=== PATIENT | female | born 1975 | race Caucasian/White ===

== ENCOUNTER 2016-11-26 12:00 | Emergency (ER) | payer SELFPAY ==
[~2016-11-26] VITALS: Ht 152.4 cm; Wt 45.4 kg
[~2016-11-26 12:00] MED LIST: TRAZODONE 50MG50 MG PO
--- NOTE | 2016-11-26 12:22 | Emergency Room Report ---
History of Present Illness Time Seen by 1204 Presenting Problem in Triage Pt arrived:Walked Presenting Problem:C/O PAIN IN L FOOT X3 WEEKS. PT DENIES ACCIDENT OR INJURY. 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 N Clinical Suspician of Infection? N Mental Status: 1 - Regular (Normal Baseline) Sepsis Risk:Low Sepsis Risk Have you (or family members/close friends) recently traveled outside the [place]? N If Yes, where/when: Have you had exposure to infectious disease within the past month? N TB? Other? Specify: Patient complains of pain in her ankle are for three weeks states that pain is worse when anything touches her skin. States was seen 3 weeks ago at [facility] and was dx with sciatica, give Naproxin, Flexaril and Vicodin. Denies any injury states that she just woke up and it was hurting. Pain is mostly on top of skin when skin area is touched. Exam Limitations no limitations, patient did not want foot/ankle area touched, however finally agreed to allow exam warm to touch ALLERGIES Coded Allergies: erythromycin base (11/26/16) (AKASH CALDERON, COLIN Arroyo) Presenting Problem in Triage Pt arrived:Walked Presenting Problem:C/O PAIN IN L FOOT X3 WEEKS. PT DENIES ACCIDENT OR INJURY. 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 N Clinical Suspician of Infection? N Mental Status: 1 - Regular (Normal Baseline) Sepsis Risk:Low Sepsis Risk Have you (or family members/close friends) recently traveled outside the [place]? N If Yes, where/when: Have you had exposure to infectious disease within the past month? N TB? Other? 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 No Angina: No MS: No Hypertension? No Hyperlipidemia? No CHF? No DVT? No PE? No COPD? No Asthma? No Anemia? No GERD? No Gastric ulcers? No GI Bleed? No Hernia? No Thyroid Problems? No Hypothyroidism? No CVA? No Seizures? No Diabetes? No Renal Insuffiency? No End Stage Renal Disease? No UTI? No Stones? No GB Disease: Yes Nephritic Syndrome? No Asplenia? No Hepatitis? No Sickle Cell Disease? No Arthritis? No Migraines? No Cataracts? No Glaucoma? No MRSA? No HIV? No TB? No Anxiety? Yes Depression? Yes Cancer? No More? 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 Respiratory denies no symptoms reported Cardiovascular denies no symptoms reported Gastrointestinal denies no symptoms reported Musculoskeletal denies see HPI, denies other (pain R ankle area) Skin denies no symptoms reported, denies see HPI (COLIN BUSTOS APRN) All Other Systems Reviewed and Negative (Aaliyah Bocanegra MD) Physical Exam General Appearance normal appearance, no apparent distress Eye Exam - bilateral eye normal exam, bilateral eye PERRL Ear, Nose, Throat normal ENT inspection Neck normal inspection Respiratory Status Yes: trachea midline, chest symmetrical. No: respiratory distress. Lung Sounds bilateral: normal breath sounds, lungs clear. Cardiovascular normal exam Peripheral Pulses Pulses normal Yes Comment Pedal pulses checked, of equal quality easily palpated Gastrointestinal normal bowel sounds, normal exam, non tender Extremities normal inspection, normal capillary refill, no calf tenderness, no pedal edema, Patient complains of pain in her left foot/ankle area states that pain is continous occuring for over 3 weeks states that skin feels sore and hurts when anything even a bedsheet touches the area. Denies any injury Strength 4 Lower Ext (L), 5 Upper Ext (L), 5 Upper Ext (R), 5 Lower Ext (L), 5 Lower Ext (R) (pain in extremity when touched) Nurse present during exam? Yes Neurologic alert, normal exam, no motor/sensory deficits Glascow Coma Scale Glascow Coma Scale Response Value EYE response: 4 Spontaneously 4 MOTOR response: 6 OBEYS 6 VERBAL response: 5 Oriented & Converses 5 Total 15 Reflexes Reflexes normal Yes Skin intact, normal color, warm/dry (AKASH CALDERON, COLIN Arroyo) Vital Signs Vital Signs Date Time Temp Pulse Resp B/P Pulse O2 O2 Flow FiO2 Ox Delivery Rate 11/26 1655 97.8 85 18 103/44 100 11/26 1622 85 18 103/44 100 11/26 1620 18 11/26 1433 79 18 159/74 99 11/26 1204 97.6 100 18 137/87 99 Extremities Patient has tenderness over tendons, dorsum of left foot, c/w tendinitis, but foot is somewhat cool to touch. Has used ice recently. No gross discoloration noted. No asymmetry, crepitus, deformity, or stepoffs noted, no pain over Achilles tendon. Brisk CR, fully sensate, DP and PT full. Skin intact (no streaks or abscess) (Daljit YOO, Aaliyah Oliveira) Medical Decision Making LABS/Meds/Orders Pt receiving controlled substance in ED? No (Track keller noted by RN) Tiago was queried for this patient? No Results/Orders Laboratory Tests 11/26/16 1230: Sodium 139, Potassium 3.7, Chloride 100, Carbon Dioxide 30, BUN 9, Creatinine 0.7, Estimated Creat Clear 77, Estimated GFR (MDRD) 93, Glucose 74, Uric Acid 3.3, Calcium 9.2, WBC 9.6, RBC 4.84, Hgb 14.3, Hct 42.2, MCV 87.2, RDW 14.7, Plt Count 394, Gran % 63.6, Gran # 6.1, Lymphocytes % 32.0, Monocytes % 4.4, Lymphocytes # 3.1, Monocytes # 0.4, PUBS MCHC 33.9, MCH 29.5 Orders Procedure Date/time Status DIET-NOTHING BY MOUTH 11/26 D Active STABILIZE JOINT 11/26 165 Active SERUM , QUAL 11/26 1452 Complete IV SALINE LOCK 11/[address] SCAN REQ 11/26 1448 Complete URIC ACID 11/26 1232 Complete CBC WITH AUTO DIFF 11/26 1232 Complete BASIC METABOLIC PROFILE 11/26 1232 Complete XRAY/CT/US XRAY/CT/US CT interpretation by reviewed by me (report reviewed) Time results known: 1644 CT Results normal/NAD (good flow, no abnormalities) Ultrasound lower extremity US results normal (good venous flow per tech) Progress ED Progress Notes 1 Date 11/26/16 Time [address] angiogram results. Foot is not discolored, but is slightly cool, hence indication for arterial evaluation to assess circulation. ED Progress Notes 2 Date 11/26/16 Time 1648 Comment No discoloration of foot noted at time of discharge. (Aaliyah Bocanegra MD) Departure Departure Condition STABLE Prescriptions Current Visit Scripts NAPROXEN (NAPROXEN 500MG TAB) 500 MG PO BIDP PRN pain #20 TAB ED Critical Care Critical Care No (COLIN BUSTOS APRN) Departure Time of Disposition 1644 Disposition DC Home or Self Care(routine) Clinical Impression Primary Impression: Tendinitis of left foot Ruled Out Impressions: DVT (deep venous thrombosis), Peripheral artery vasospasm Referrals Harvey Lorenz MD Patient Instructions Tendonitis (Alternative Therapy) Additional Instructions Crutches for support, Rx Naproxen, See Dr. Lorenz or an orthopedic surgeon or shed boss of choice where you are moving to in [place]. Recommend follow up in 2-4 days. Discharge Counseling Counseled pt/family regarding diagnosis, test results, medications/RX, home care, follow up needs ED Critical Care Critical Care No (Aaliyah Bocanegra MD) at 1649 at 1128 Time 164 Comment No discoloration of foot noted at time of discharge. (Aaliyah Bocanegra MD) Departure Departure Condition STABLE Prescriptions Current Visit Scripts No Known Home Medications (COLIN BUSTOS APRN) Departure Time of Disposition 1644 Disposition DC Home or Self Care(routine) Clinical Impression Primary Impression: Tendinitis of left foot Ruled Out Impressions: DVT (deep venous thrombosis), Peripheral artery vasospasm Referrals Harvey Lorenz MD Patient Instructions Tendonitis (Alternative Therapy) Additional Instructions Crutches for support, Rx Naproxen, See Dr. Pettey or an orthopedic surgeon or shed boss of choice where you are moving to in [place]. Recommend follow up in 2-4 days. Discharge Counseling Counseled pt/family regarding diagnosis, test results, medications/RX, home care, follow up needs ED Critical Care Critical Care No (Daljit YOO, Aaliyah Oliveira) at [phone]
--- NOTE | 2016-11-26 12:22 | Emergency Room Report ---
History of Present Illness Time Seen by 1204 Presenting Problem in Triage Pt arrived:Walked Presenting Problem:C/O PAIN IN L FOOT X3 WEEKS. PT DENIES ACCIDENT OR INJURY. 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 N Clinical Suspician of Infection? N Mental Status: 1 - Regular (Normal Baseline) Sepsis Risk:Low Sepsis Risk Have you (or family members/close friends) recently traveled outside the [place]? N If Yes, where/when: Have you had exposure to infectious disease within the past month? N TB? Other? Specify: Patient complains of pain in her ankle are for three weeks states that pain is worse when anything touches her skin. States was seen 3 weeks ago at [facility] and was dx with sciatica, give Naproxin, Flexaril and Vicodin. Denies any injury states that she just woke up and it was hurting. Pain is mostly on top of skin when skin area is touched. Exam Limitations no limitations, patient did not want foot/ankle area touched, however finally agreed to allow exam warm to touch ALLERGIES Coded Allergies: erythromycin base (11/26/16) (AKASH CALDERON, COLIN Arroyo) Presenting Problem in Triage Pt arrived:Walked Presenting Problem:C/O PAIN IN L FOOT X3 WEEKS. PT DENIES ACCIDENT OR INJURY. 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 N Clinical Suspician of Infection? N Mental Status: 1 - Regular (Normal Baseline) Sepsis Risk:Low Sepsis Risk Have you (or family members/close friends) recently traveled outside the [place]? N If Yes, where/when: Have you had exposure to infectious disease within the past month? N TB? Other? 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 No Angina: No [place]: No Hypertension? No Hyperlipidemia? No CHF? No DVT? No PE? No COPD? No Asthma? No Anemia? No GERD? No Gastric ulcers? No GI Bleed? No Hernia? No Thyroid Problems? No Hypothyroidism? No CVA? No Seizures? No Diabetes? No Renal Insuffiency? No End Stage Renal Disease? No UTI? No Stones? No GB Disease: Yes Nephritic Syndrome? No Asplenia? No Hepatitis? No Sickle Cell Disease? No Arthritis? No Migraines? No Cataracts? No Glaucoma? No MRSA? No HIV? No TB? No Anxiety? Yes Depression? Yes Cancer? No More? 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 Respiratory denies no symptoms reported Cardiovascular denies no symptoms reported Gastrointestinal denies no symptoms reported Musculoskeletal denies see HPI, denies other (pain R ankle area) Skin denies no symptoms reported, denies see HPI (COLIN BUSTOS APRN) All Other Systems Reviewed and Negative (Aaliyah Bocanegra MD) Physical Exam General Appearance normal appearance, no apparent distress Eye Exam - bilateral eye normal exam, bilateral eye PERRL Ear, Nose, Throat normal ENT inspection Neck normal inspection Respiratory Status Yes: trachea midline, chest symmetrical. No: respiratory distress. Lung Sounds bilateral: normal breath sounds, lungs clear. Cardiovascular normal exam Peripheral Pulses Pulses normal Yes Comment Pedal pulses checked, of equal quality easily palpated Gastrointestinal normal bowel sounds, normal exam, non tender Extremities normal inspection, normal capillary refill, no calf tenderness, no pedal edema, Patient complains of pain in her left foot/ankle area states that pain is continous occuring for over 3 weeks states that skin feels sore and hurts when anything even a bedsheet touches the area. Denies any injury Strength 4 Lower Ext (L), 5 Upper Ext (L), 5 Upper Ext (R), 5 Lower Ext (L), 5 Lower Ext (R) (pain in extremity when touched) Nurse present during exam? Yes Neurologic alert, normal exam, no motor/sensory deficits Glascow Coma Scale Glascow Coma Scale Response Value EYE response: 4 Spontaneously 4 MOTOR response: 6 OBEYS 6 VERBAL response: 5 Oriented & Converses 5 Total 15 Reflexes Reflexes normal Yes Skin intact, normal color, warm/dry (AKASH CALDERON, COLIN Arroyo) Vital Signs Vital Signs Date Time Temp Pulse Resp B/P Pulse O2 O2 Flow FiO2 Ox Delivery Rate 11/26 1655 97.8 85 18 103/44 100 11/26 1622 85 18 103/44 100 11/26 1620 18 11/26 1433 79 18 159/74 99 11/26 1204 97.6 100 18 137/87 99 Extremities Patient has tenderness over tendons, dorsum of left foot, c/w tendinitis, but foot is somewhat cool to touch. Has used ice recently. No gross discoloration noted. No asymmetry, crepitus, deformity, or stepoffs noted, no pain over Achilles tendon. Brisk CR, fully sensate, DP and PT full. Skin intact (no streaks or abscess) (Daljit YOO, Aaliyah Oliveira) Medical Decision Making LABS/Meds/Orders Pt receiving controlled substance in ED? No (Track keller noted by RN) Tiago was queried for this patient? No Results/Orders Laboratory Tests 11/26/16 1230: Sodium 139, Potassium 3.7, Chloride 100, Carbon Dioxide 30, BUN 9, Creatinine 0.7, Estimated Creat Clear 77, Estimated GFR (MDRD) 93, Glucose 74, Uric Acid 3.3, Calcium 9.2, WBC 9.6, RBC 4.84, Hgb 14.3, Hct 42.2, MCV 87.2, RDW 14.7, Plt Count 394, Gran % 63.6, Gran # 6.1, Lymphocytes % 32.0, Monocytes % 4.4, Lymphocytes # 3.1, Monocytes # 0.4, PUBS MCHC 33.9, MCH 29.5 Orders Procedure Date/time Status DIET-NOTHING BY MOUTH 11/26 D Active STABILIZE JOINT 11/26 165 Active SERUM , QUAL 11/26 1452 Complete IV SALINE LOCK 11/[address] SCAN REQ 11/26 1448 Complete URIC ACID 11/26 1232 Complete CBC WITH AUTO DIFF 11/26 1232 Complete BASIC METABOLIC PROFILE 11/26 1232 Complete XRAY/CT/US XRAY/CT/US CT interpretation by reviewed by me (report reviewed) Time results known: 1644 CT Results normal/NAD (good flow, no abnormalities) Ultrasound lower extremity US results normal (good venous flow per tech) Progress ED Progress Notes 1 Date 11/26/16 Time [address] angiogram results. Foot is not discolored, but is slightly cool, hence indication for arterial evaluation to assess circulation. ED Progress Notes 2 Date 11/26/16 Time 1648 Comment No discoloration of foot noted at time of discharge. (Aaliyah Bocanegra MD) Departure Departure Condition STABLE Prescriptions Current Visit Scripts NAPROXEN (NAPROXEN 500MG TAB) 500 MG PO BIDP PRN pain #20 TAB ED Critical Care Critical Care No (COLIN BUSTOS APRN) Departure Time of Disposition 1644 Disposition DC Home or Self Care(routine) Clinical Impression Primary Impression: Tendinitis of left foot Ruled Out Impressions: DVT (deep venous thrombosis), Peripheral artery vasospasm Referrals Harvey Lorenz MD Patient Instructions Tendonitis (Alternative Therapy) Additional Instructions Crutches for support, Rx Naproxen, See Dr. Lorenz or an orthopedic surgeon or forming roll operator of choice where you are moving to in [place]. Recommend follow up in 2-4 days. Discharge Counseling Counseled pt/family regarding diagnosis, test results, medications/RX, home care, follow up needs ED Critical Care Critical Care No (Aaliyah Bocanegra MD) at 1649 at 1128 Time 164 Comment No discoloration of foot noted at time of discharge. (Aaliyah Bocanegra MD) Departure Departure Condition STABLE Prescriptions Current Visit Scripts No Known Home Medications (COLIN BUSTOS APRN) Departure Time of Disposition 1644 Disposition DC Home or Self Care(routine) Clinical Impression Primary Impression: Tendinitis of left foot Ruled Out Impressions: DVT (deep venous thrombosis), Peripheral artery vasospasm Referrals Harvey Lorenz MD Patient Instructions Tendonitis (Alternative Therapy) Additional Instructions Crutches for support, Rx Naproxen, See Dr. Pettey or an orthopedic surgeon or forming roll operator of choice where you are moving to in [place]. Recommend follow up in 2-4 days. Discharge Counseling Counseled pt/family regarding diagnosis, test results, medications/RX, home care, follow up needs ED Critical Care Critical Care No (Daljit YOO, Aaliyah Oliveira) at 6216
[2016-11-26 12:42] LABS: HEMOGLOBIN 14.3 g/dL (12.2-16.2)
[2016-11-26 12:45] LABS: LYMPH # 3.1 K/mm3 (0.7-4.5)
--- NOTE | 2016-11-26 15:00 | CARDIOVASCULAR REPORT ---
"Venous Exam Indications: 729.5 Pain in limb. Cold discolored Left Foot. IMPRESSIONS 1. There is no evidence of significant Reflux. 2. No evidence of deep or superficial vein thrombosis involving the left lower extremity 3. Turbulant blood flow noted in the CONSULTANT DIETITIAN, no plaque noted.Suggest further testing. Left lower extremity venous duplex evaluation. Doppler flow study including spectral analysis, color and sanchez scale imaging. Location: Vascular laboratory. Patient status: Emergency department. CRITICAL FINDINGS - Reported to: Dr. Bocanegra - Read back and verified. - 11/26/16 - 4142 - -dvt Tables: Venous flow and imaging: + +-------+ + |Location |Overall|Flow properties | + +-------+ + |Left common femoral |Patent |Normal phasicity; spontaneous; | | | |normal augmentation; compressible | + +-------+ + |Left saphenofemoral junction|Patent |Compressible | + +-------+ + |Left profunda femoral |Patent |Compressible | + +-------+ + |Left femoral |Patent |Normal phasicity; spontaneous; | | | |normal augmentation; compressible | + +-------+ + |Left greater saphenous |Patent |Normal phasicity; spontaneous; | | | |normal augmentation; compressible | + +-------+ + |Left popliteal |Patent |Normal phasicity; spontaneous; | | | |normal augmentation; compressible | + +-------+ + |Left posterior tibial |Patent |Compressible | + +-------+ + |Left peroneal |Patent |Compressible | + +-------+ + |Left gastrocnemius |Patent |Compressible | + +-------+ + |Left soleal |Patent |Compressible | + +-------+ + (Report amended ) Electronically signed by: Gordy Gibson [id number]"
--- NOTE | 2016-11-26 15:00 | CARDIOVASCULAR REPORT ---
"Venous Exam Indications: 729.5 Pain in limb. Cold discolored Left Foot. IMPRESSIONS 1. There is no evidence of significant Reflux. 2. No evidence of deep or superficial vein thrombosis involving the left lower extremity 3. Turbulant blood flow noted in the EXPLORATION GEOLOGIST, no plaque noted.Suggest further testing. Left lower extremity venous duplex evaluation. Doppler flow study including spectral analysis, color and sanchez scale imaging. Location: Vascular laboratory. Patient status: Emergency department. CRITICAL FINDINGS - Reported to: Dr. Bocanegra - Read back and verified. - 11/26/16 - 0399 - -dvt Tables: Venous flow and imaging: + +-------+ + |Location |Overall|Flow properties | + +-------+ + |Left common femoral |Patent |Normal phasicity; spontaneous; | | | |normal augmentation; compressible | + +-------+ + |Left saphenofemoral junction|Patent |Compressible | + +-------+ + |Left profunda femoral |Patent |Compressible | + +-------+ + |Left femoral |Patent |Normal phasicity; spontaneous; | | | |normal augmentation; compressible | + +-------+ + |Left greater saphenous |Patent |Normal phasicity; spontaneous; | | | |normal augmentation; compressible | + +-------+ + |Left popliteal |Patent |Normal phasicity; spontaneous; | | | |normal augmentation; compressible | + +-------+ + |Left posterior tibial |Patent |Compressible | + +-------+ + |Left peroneal |Patent |Compressible | + +-------+ + |Left gastrocnemius |Patent |Compressible | + +-------+ + |Left soleal |Patent |Compressible | + +-------+ + (Report amended ) Electronically signed by: Gordy Gibson [id number]"
--- NOTE | 2016-11-26 16:28 | RADIOLOGY REPORT PS360 ---
CTA-ABD AORTA LAMINE ILEOFEM RO CLINICAL INDICATION: Left cold painful foot COOL FOOT, CHECK ARTERIAL FLOW ORDERING PHYSICIAN: Aaliyah Bocanegra MD PATIENT AGE: 41 years TECHNIQUE: CT angiogram performed following the intravenous administration of 100 mL of Isovue-370 COMPARISON: None Vascular findings: The aorta, iliacs, superficial femoral arteries, and popliteal arteries have an unremarkable appearance. There is 3 vessel runoff to the just above the ankle bilaterally. No evidence of occlusive process. No significant atherosclerotic changes evident. No AVM or aneurysm. Arteries at the level of the ankle and foot are not well seen on the left probably related to the contrast bolus. Posterior tibial artery is patent to the ankle and proximal foot bilaterally. The peroneal artery and anterior tibial artery not well delineated on the left at the level of the ankle probably related to technical factors. Nonvascular findings: Prior cholecystectomy. Mild prominence of the common bile duct. The visualized portion of the liver, spleen, adrenal glands, pancreas, and kidneys are unremarkable. IMPRESSION: 1. Negative aortogram and bilateral runoff. No occlusive process or embolic process evident. 2. The anterior tibial and peroneal arteries are not well delineated on the left at the level of the ankle joint probably related to the technique. Posterior tibial artery is patent at the ankle and proximal foot bilaterally.
[2016-11-26] MEDS ORDERED: NAPROXEN SODIU500 MG PO (16:50)
[2016-11-26 16:55] VITALS: BP 103/44
== END 2016-11-26 16:55 | disposition home or self-care (01) ==
LOC: ER 12:00
PROVIDERS: Nurse Practitioner
DX: M65.872 Other synovitis and tenosynovitis, left ankle and foot (principal); M79.672 Pain in left foot; Z72.0 Tobacco use
CPT/HCPCS: Q9967